=== PATIENT | female | born 2000 | race Caucasian/White ===

== ENCOUNTER 2021-12-01 23:00 | Emergency (ER) | payer SELFPAY ==
[~2021-12-01] VITALS: Ht 149.9 cm; Wt 131.1 kg
[2021-12-01] MEDS ORDERED: IBUPROFEN 600 MG TAB PO STA (23:31)
[2021-12-01] MEDS ORDERED: HYDROCODONE/APAP 5MG-325MG TAB PO ONE (23:45)
[2021-12-01] MEDS ORDERED: IBUPROFEN 600 MG TAB ONE (23:45)
[2021-12-01] MEDS ORDERED: HYDROCODONE/APAP 5MG-325MG TAB ONE (23:46)
== END 2021-12-02 00:55 | disposition home or self-care (01) ==
LOC: FSED 23:19
DX: S53.401A Unspecified sprain of right elbow, initial encounter (principal); W10.8XXA Fall (on) (from) other stairs and steps, initial encounter; Y93.01 Activity, walking, marching and hiking; Y92.008 Other place in unspecified non-institutional (private) residence as the place of occurrence of the external cause; E66.01 Morbid (severe) obesity due to excess calories
CPT/HCPCS: 99283